=== PATIENT | male | born 1970 | race African-American/Black ===

== ENCOUNTER 2020-08-13 09:43 | Emergency (ER) | payer SELFPAY ==
[~2020-08-13] VITALS: Ht 195.6 cm; Wt 118.0 kg
[2020-08-13] MEDS ORDERED: MORPHINE SULFATE 4 MG/ML CPJ (NOT FOR IM USE) IV STA ×2 (10:39→12:47)
[2020-08-13] MEDS ORDERED: ONDANSETRON HCL 4MG/2ML INJ IV STA (10:39)
[2020-08-13] MEDS ORDERED: KETOROLAC 15MG/ML VIAL IV ONE (11:00)
[2020-08-13 11:35] LABS: BASOPHILS % 0.3 % (0.0-2.0); EOSINOPHILS % 0.5 % (0.0-5.0); HEMATOCRIT. 36.3 % (42.0-52.0); HEMOGLOBIN. 12.6 g/dL (14.0-18.0); LYMPHOCYTES % 11.5 % (20.0-50.0); MEAN CORPUSCULAR VOLUME 95.5 fL (80.0-94.0); MEAN PLATELET VOLUME 9.5 fl (7.4-10.4); NEUTROPHILS % 81.7 % (40.0-76.0); PLATELET 240 x1000/uL (130-400); RED CELL DISTRIBUTION WIDTH 13.6 % (11.6-14.6)
[2020-08-13 11:58] LABS: CHLORIDE 105 mEq/L (98-107)
[2020-08-13] MEDS ORDERED: ONDANSETRON HCL 4MG/2ML INJ IV ONE (12:15)
[2020-08-13] MEDS ORDERED: FAMO-135 MT (13:14)
[2020-08-13 13:32] VITALS: BP 114/81
== END 2020-08-13 13:37 | disposition home or self-care (01) ==
LOC: ER 09:43
DX: R10.31 Right lower quadrant pain (principal); R11.2 Nausea with vomiting, unspecified; Z86.73 Personal history of transient ischemic attack (TIA), and cerebral infarction without residual deficits; Z79.899 Other long term (current) drug therapy
CPT/HCPCS: 36415; 74176; 80053; 83690; 85025; 96374; 96375; 96376; 99284; J1885; J2270; J2405